=== PATIENT | female | born 2005 | race African-American/Black ===

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

== ENCOUNTER 2023-07-13 15:43 | Emergency (ER) | payer OTHER ==
[2023-07-13 15:50] VITALS: BP 130/76; PULSE 110; RESP 18; TEMP 99.6; BMI 33.6
== END 2023-07-13 18:20 | disposition home or self-care (01) ==
LOC: JERFT 15:43
DX: O99.512 Diseases of the respiratory system complicating pregnancy, second trimester (principal); J02.9 Acute pharyngitis, unspecified; R09.81 Nasal congestion; O98.512 Other viral diseases complicating pregnancy, second trimester; J10.1 Influenza due to other identified influenza virus with other respiratory manifestations; O26.892 Other specified pregnancy related conditions, second trimester; R10.2 Pelvic and perineal pain; O23.592 Infection of other part of genital tract in pregnancy, second trimester; N89.8 Other specified noninflammatory disorders of vagina; Z20.822 Contact with and (suspected) exposure to COVID-19; Z3A.27 27 weeks gestation of pregnancy
CPT/HCPCS: 0241U-QW; 87651; 99283-25

== ENCOUNTER 2023-10-03 10:20 | Inpatient (IN) | payer OTHER ==
[2023-10-03 12:20] VITALS: BMI 40.3
[2023-10-03 12:58] LABS: BASO % 0.5 % (0-2.0); EOS % 2.3 % (0-4.5); HEMATOCRIT 31.1 % (32.4-45.2); HEMOGLOBIN 10.3 GM/dL (10.7-15.3); LYMPH % 19.4 % (8-40); MCH 24.2 pg (25.7-33.7); MCHC 33.2 g/dl (32.0-36.0); MEAN CELL VOLUME 72.8 fl (80-96); MEAN PLT VOLUME 8.5 fl (7.5-11.1); MONO % 6.1 % (3.8-10.2); NEUT % 71.7 % (42.8-82.8); PLATELET COUNT 350 10^3/uL (134-434); RBC 4.27 M/mm3 (3.60-5.2); RDW 16.2 % (11.6-15.6); WHITE BLOOD COUNT 9.9 K/mm3 (4.0-10.0)
[2023-10-03 13:05] LABS: INR 1.05 (0.83-1.09); PROTHROMBIN TIME (PATIENT) 11.9 SEC (9.7-13.0)
[2023-10-03 13:08] LABS: ACTIVATED PTT 26.6 SECONDS (25.2-36.5)
[2023-10-03 13:19] LABS: POTASSIUM 4.2 mmol/L (3.5-5.1)
[2023-10-03 13:20] LABS: CALCIUM 9.4 mg/dL (8.5-10.1)
[2023-10-03 13:21] LABS: BLOOD UREA NITROGEN 8.2 mg/dL (7-18)
[2023-10-03 13:24] LABS: CREATININE 0.5 mg/dL (0.55-1.3)
[2023-10-03] MEDS: ELECTROLYTE-148 SOLN 1,000 ML IV SCH (13:49)
[2023-10-03 14:15] LABS: HIV INTERPRETATION NEGATIVE (NEGATIVE)
[2023-10-03 14:24] LABS: SYPHILIS W/ RPR CONF REACTIVE (NONREACTIVE)
[2023-10-03] MEDS: MISOPROSTOL 25 MCG TABLET (COMPOUNDED BY PHARMACY) BUC ONE ×2 (14:45→19:00)
[2023-10-03] MEDS ORDERED: PROMETHAZINE HCL 25 MG/1 ML VIAL ONE (16:45)
[2023-10-03] MEDS ORDERED: BUTORPHANOL TARTRATE 2 MG/ML VIAL ONE (16:45)
[2023-10-03] MEDS: PROMETHAZINE HCL 25 MG/1 ML VIAL IVPB ONE (17:00)
[2023-10-03] MEDS: BUTORPHANOL TARTRATE 2 MG/ML VIAL IVPB ONE (17:05)
[2023-10-03] MEDS ORDERED: PENICILLIN G POTASSIUM 5,000,000 (5Mm) UNIT VIAL IVPB SCH (21:30)
[2023-10-03] MEDS ORDERED: FENTANYL/BUPIVACAINE/NS/PF - PCEA - 50 ML DISP.SYRIN EP ONE (22:29)
[2023-10-03] MEDS ORDERED: BUPIVACAINE HCL/PF 0.25% (2.5MG/ML) 10 ML VIAL ONE (22:32)
[2023-10-03] MEDS: FENTANYL/BUPIVACAINE/NS/PF - PCEA - 50 ML DISP.SYRIN EP SCH (22:50)
[2023-10-03] MEDS ORDERED: NALOXONE HCL 0.4 MG/ML VIAL IVPUSH PRN (23:20)
[2023-10-04] MEDS ORDERED: FENTANYL/BUPIVACAINE/NS/PF - PCEA - 50 ML DISP.SYRIN EP ONE ×7 (03:11→23:06)
[2023-10-04] MEDS ORDERED: PENICILLIN G POTASSIUM 5,000,000 UNIT/250 ML BAG IVPB ONE (08:19)
[2023-10-04] MEDS: PENICILLIN G POTASSIUM 5,000,000 PRE-DOCK IN NS 250 ML IVPB ONE (08:25)
[2023-10-04] MEDS: PENICILLIN G POTASSIUM 2,500,000 UNIT in SODIUM CHLORIDE 250 ML IVPB SCH ×3 (08:50→21:30)
[2023-10-04] MEDS ORDERED: OXYTOCIN 30 UNITS in 0.9% NS 30 UNIT/500 ML INFUS.BAG IVPB ONE (09:28)
[2023-10-04] MEDS: OXYTOCIN 30 UNITS in 0.9% NS 30 UNIT/500 ML INFUS.BAG IVPB SCH (09:33)
[2023-10-04] MEDS ORDERED: BUPIVACAINE HCL/PF 0.25% (2.5MG/ML) 10 ML VIAL ONE ×3 (11:47→21:17)
[2023-10-04] MEDS ORDERED: FENTANYL CITRATE/PF 50 MCG/ML VIAL ONE ×2 (19:18→21:17)
[2023-10-04] MEDS ORDERED: LIDO 2%/EPI 1:200000 PRESRVFRE (20 ML SDVIAL) ONE (21:12)
[2023-10-04] MEDS: FENTANYL/BUPIVACAINE/NS/PF - PCEA - 50 ML DISP.SYRIN EP SCH (23:05)
[2023-10-05] MEDS ORDERED: FENTANYL/BUPIVACAINE/NS/PF - PCEA - 50 ML DISP.SYRIN EP ONE (01:42)
[2023-10-05] MEDS ORDERED: LIDOCAINE HCL 1% PRESERVATIVE FREE - 30ML VIAL ONE (03:32)
[2023-10-05] MEDS ORDERED: OXYTOCIN 20 UNITS in 0.9% NS 20 UNIT/1,000 ML INFUS.BAG IV ONE (03:32)
[2023-10-05] MEDS: OXYTOCIN 20 UNITS in 0.9% NS 20 UNIT/1,000 ML INFUS.BAG IV SCH (04:20)
[2023-10-05] MEDS ORDERED: METHYLERGONOVINE MALEATE 0.2 MG/1 ML AMP IM PRN (04:37)
[2023-10-05] MEDS ORDERED: BENZOCAINE 20% 57 GM BOTTLE TP PRN (04:37)
[2023-10-05] MEDS ORDERED: BISACODYL 10 MG SUPP.RECT RC PRN (04:37)
[2023-10-05] MEDS ORDERED: ACETAMINOPHEN 325 MG TABLET (FP) PO PRN (04:37)
[2023-10-05] MEDS ORDERED: BENZOCAINE 28 GM HEMORRHOIDAL OINTMENT TP PRN (04:37)
[2023-10-05] MEDS ORDERED: WITCH HAZEL 50% (TUCKS) 40 PAD/JAR PAD TP PRN (04:37)
[2023-10-05] MEDS ORDERED: ACETAMINOPHEN 325 MG TABLET (FP) ONE (05:16)
[2023-10-05] MEDS ORDERED: oxyCODONE HCL 5 MG TABLET ONE (05:16)
[2023-10-05] MEDS: oxyCODONE HCL 5 MG TABLET PO ONE (05:20)
[2023-10-05] MEDS: ACETAMINOPHEN 325 MG TABLET (FP) PO ONE (05:20)
[2023-10-05 05:49] LABS: CORD BASE EXCESS -5.9 mmol/L (0-2); CORD HCO3 22.7 mmHg (20-29); CORD PCO2 56.8 mmHg (30-78); CORD pH 7.219 (7.14-7.44)
[2023-10-05 05:49] LABS: CORD BASE EXCESS -4.7 mmol/L (0-2); CORD HCO3 20.7 mmHg (20-29); CORD PCO2 39.7 mmHg (30-78); CORD pH 7.335 (7.14-7.44)
[2023-10-05] MEDS ORDERED: IBUPROFEN 600 MG TABLET (FP) PO ONE (07:55)
[2023-10-05] MEDS: IBUPROFEN 600 MG TABLET (FP) PO PRN (07:58)
[2023-10-05] MEDS: FERROUS SO4 325 MG TABLET (FP) PO SCH (09:36)
[2023-10-05] MEDS: PRENATAL VITAMINS W/ FOLIC ACID TABLET (FP) PO SCH (09:36)
[2023-10-06 08:25] LABS: BASO % 0.3 % (0-2.0); EOS % 1.4 % (0-4.5); HEMATOCRIT 25.4 % (32.4-45.2); HEMOGLOBIN 8.6 GM/dL (10.7-15.3); LYMPH % 26.8 % (8-40); MCH 24.6 pg (25.7-33.7); MCHC 33.8 g/dl (32.0-36.0); MEAN CELL VOLUME 72.7 fl (80-96); MEAN PLT VOLUME 8.3 fl (7.5-11.1); MONO % 5.5 % (3.8-10.2); PLATELET COUNT 307 10^3/uL (134-434); RDW 16.4 % (11.6-15.6); WHITE BLOOD COUNT 11.8 K/mm3 (4.0-10.0)
[2023-10-06] MEDS: IRON SUCROSE INJECTION 300 MG in SODIUM CHLORIDE 235 ML IVPB ONE (16:05)
[2023-10-07 09:18] LABS: RETICULOCYTES 2.04 % (0.5-1.5)
[2023-10-07 09:29] LABS: EPI CELLS 27 /uL (0-25.1); HYALINE CASTS 2 /uL (0-3.1); URINE APPEARANCE TURBID; URINE BACTERIA 77 /uL (0-1359); URINE BILIRUBIN NEGATIVE (NEGATIVE); URINE COLOR RED; URINE GLUCOSE (UA) NEGATIVE (NEGATIVE); URINE KETONE NEGATIVE (NEGATIVE); URINE LEUK ESTERASE 3+ (NEGATIVE); URINE NITRITE NEGATIVE (NEGATIVE); URINE PROTEIN 1+ (NEGATIVE); URINE RBC 18886 /uL (0-23.9); URINE WBC 1039 /uL (0-25.8)
[2023-10-07 09:46] LABS: URIC ACID 4.8 mg/dL (2.6-7.2)
[2023-10-07] MEDS: LABETALOL HCL 200 MG TABLET (FP) PO SCH (09:46)
[2023-10-07] MEDS: SENNOSIDES/DOCUSATE COMBO (SENNA PLUS) TABLET (UD) PO PRN (21:05)
[2023-10-08 09:05] VITALS: RESP 16; TEMP 98
[2023-10-08 12:22] VITALS: BP 134/81; PULSE 83
== END 2023-10-08 12:30 | disposition home or self-care (01) | DRG 560 ==
LOC: JLDR 10:20 → J3W 10-05 08:10
PROVIDERS: ADMIT Obstetrics & Gynecology; ATTEND Obstetrics & Gynecology
PROC: 10E0XZZ Delivery of Products of Conception, External Approach (ICD-10-PCS; principal; 2023-10-05)
PROC: 0HQ9XZZ Repair Perineum Skin, External Approach (ICD-10-PCS; 2023-10-05)
DX: O16.4 Unspecified maternal hypertension, complicating childbirth (principal); O99.824 Streptococcus B carrier state complicating childbirth; O70.0 First degree perineal laceration during delivery; Z3A.39 39 weeks gestation of pregnancy; Z37.0 Single live birth
CPT/HCPCS: 36415; 36600; 80048; 81003; 82570; 82803; 82977; 83010; 84156; 84450; 84460; 84550; 85025; 85032; 85045; 85610; 85730; 86593; 86780; 86803; 86850; 86900; 86901; 87389; J1756